=== PATIENT | female | born 1950 | race Caucasian/White ===

== ENCOUNTER 2025-08-15 08:24 | Day surgery (SDC) | payer MEDICARE, MEDICAID ==
[2025-08-15] MEDS ORDERED: Sodium Chloride 0.9% 10 ML Syringe IV ONE (08:25)
[2025-08-15] MEDS ORDERED: Dexamethasone 4 MG/ML SDV IV ONE (08:25)
[2025-08-15] MEDS ORDERED: Midazolam 1 MG/ML 2 ML SDV IV ONE (08:25)
[2025-08-15] MEDS: Moxifloxacin 0.5% Ophth Soln 3 ML Bottle EYELF ONE (08:51)
[2025-08-15] MEDS: Povidone-Iodine 5% Sterile Ophth Soln 30 ML Bottle EYELF ONE ×2 (08:53→09:40)
[2025-08-15] MEDS: Timolol Maleate 0.5% Ophth Soln 5 ML Bottle EYELF ONE (08:54)
[2025-08-15] MEDS: Phenylephrine 10% Ophth Soln 5 ML Bot EYELF ONE (08:54)
[2025-08-15] MEDS: Cataract Ophth Solution EYELF ONE (08:55)
[2025-08-15] MEDS ORDERED: Ondansetron 4 MG/2 ML SDV IVPUSH PRN (09:00)
[2025-08-15] MEDS: Apraclonidine 0.5% Ophth Soln 5 ML Bot EYELF ONE (09:42)
[2025-08-15] MEDS: Dexamethasone/Neomycin/Polymyxin B Ophth Oint 3.5 GM Tube EYELF ONE (09:43)
[2025-08-15] MEDS: Diclofenac Sodium 0.1% Ophth Soln 5 ML Bottle EYELF ONE (09:43)
[2025-08-15] MEDS ORDERED: Dexamethasone 4 MG/ML SDV ONE (10:35)
== END 2025-08-15 10:20 | disposition home or self-care (01) ==
LOC: DL.SDS 08:24
PROVIDERS: ATTEND Ophthalmology
DX: H25.813 Combined forms of age-related cataract, bilateral (principal); N18.9 Chronic kidney disease, unspecified; Z88.8 Allergy status to other drugs, medicaments and biological substances; Z91.018 Allergy to other foods; Z79.899 Other long term (current) drug therapy
CPT/HCPCS: 66984; A9270; J2003; J3373; 00142; 99100; J1100; J2250; J3490; V2632

== ENCOUNTER 2025-08-29 08:29 | Day surgery (SDC) | payer MEDICARE, MEDICAID ==
[2025-08-29] MEDS: Povidone-Iodine 5% Sterile Ophth Soln 30 ML Bottle EYERT ONE ×2 (08:54→09:46)
[2025-08-29] MEDS: Moxifloxacin 0.5% Ophth Soln 3 ML Bottle EYERT ONE (08:56)
[2025-08-29] MEDS: Cataract Ophth Solution EYERT ONE (08:58)
[2025-08-29] MEDS: Phenylephrine 10% Ophth Soln 5 ML Bot EYERT ONE (08:58)
[2025-08-29] MEDS: Timolol Maleate 0.5% Ophth Soln 5 ML Bottle EYERT ONE (08:58)
[2025-08-29] MEDS ORDERED: Ondansetron 4 MG/2 ML SDV IVPUSH PRN (09:00)
[2025-08-29] MEDS: Apraclonidine 0.5% Ophth Soln 5 ML Bot EYERT ONE (09:55)
[2025-08-29] MEDS: Diclofenac Sodium 0.1% Ophth Soln 5 ML Bottle EYERT ONE (09:55)
[2025-08-29] MEDS: Dexamethasone/Neomycin/Polymyxin B Ophth Oint 3.5 GM Tube EYERT ONE (09:56)
== END 2025-08-29 11:02 | disposition home or self-care (01) ==
LOC: DL.SDS 08:29
PROVIDERS: ATTEND Ophthalmology
DX: H25.811 Combined forms of age-related cataract, right eye (principal); N18.9 Chronic kidney disease, unspecified; Z88.8 Allergy status to other drugs, medicaments and biological substances; Z91.018 Allergy to other foods; Z79.899 Other long term (current) drug therapy
CPT/HCPCS: 66984; A9270; J2003; J3373; J3490